=== PATIENT | male | born 1970 | race Caucasian/White ===

== ENCOUNTER → 2018-04-27 09:58 | Outpatient (CLI) | payer OTHER, SELFPAY ==
[2018-04-27 12:07] LABS: Absolute Lymphocyte Count 1.08 X10^3/ul (0.83-4.51); Absolute Neutrophil Count 5.5 X10^3/uL (2.0-7.7); Basophil# 0.02 X10^3/uL; Basophil% 0.3 % (0-1); Eosinophil# 0.15 X10^3/uL; Hematocrit 41.1 % (40-54); Hemoglobin 14.4 g/dl (13.0-16.5); Lymphocyte # 1.08 X10^3/ul (4.0); Lymphocyte % 14.6 % (19-41); Mean Corpuscular Hgb 29.3 pg (27.0-32.0); Mean Corpuscular Volume 83.5 fL (80-94); Mean Platelet Vol. 11.5 fl (6.2-12.0); Monocyte# 0.64 X10^3/uL; Monocyte% 8.6 % (0-10); Neutrophil # 5.49 X10^3/uL (2.7-7.7); Neutrophil % 74.1 % (47-70); Platelet Count 228 K/mm3 (150-450); RBC Distribution Width CV 12.8 % (11.6-14.6); RBC Distribution Width SD 38.2 fl (35.1-43.9); Red Blood Count 4.92 M/mm3 (4.6-6.2); White Blood Count 7.4 K/mm3 (4.4-11.0)
[2018-04-27 12:08] LABS: POSITIVE COUNT NO; POSITIVE DIFFERENTIAL NO; POSITIVE MORPHOLOGY NO
[2018-04-27 12:14] LABS: Anion Gap 8 (5-15); BUN 12 mg/dL (7-18); BUN/Creat Ratio 14.9 RATIO (10-20); Calcium,Total 8.6 mg/dL (8.5-10.1); Chloride 105 mmol/L (98-107); EST Glomerular Filtration Rate 109 mL/min (>60); Est Glom Filt Rate - Afr Amer 132 mL/min (>60); Glucose 170 mg/dL (74-106); Potassium 4.2 mmol/L (3.5-5.1); Sodium Level 139 mmol/L (136-145)
== END ==
PROVIDERS: Family Provider Family Medicine; PCP Family Medicine; Visit Provider Family Medicine
DX: I10 Essential (primary) hypertension (principal); E11.9 Type 2 diabetes mellitus without complications
CPT/HCPCS: 36415; 80048; 85025

== ENCOUNTER → 2019-08-23 | Outpatient (CLI) | payer OTHER, SELFPAY ==
[2019-08-23 17:30] LABS: Absolute Lymphocyte Count 1.85 X10^3/uL (0.83-4.51); Basophil# 0.05 X10^3/uL; Basophil% 0.7 % (0-1); Eosinophil# 0.12 X10^3/uL; Eosinophils% 1.6 % (0-5); Hematocrit 42.6 % (40-54); Hemoglobin 14.8 g/dL (13.0-16.5); Lymphocyte # 1.85 X10^3/ul (4.0); Lymphocyte % 24.2 % (19-41); Mean Corp Hgb Conc 34.7 g/dL (32-36); Mean Corpuscular Hgb 29.4 pg (27.0-32.0); Mean Corpuscular Volume 84.7 fL (80-94); Mean Platelet Vol. 11.2 fl (6.2-12.0); Monocyte# 0.57 X10^3/uL; Monocyte% 7.5 % (0-10); NRBC Flagged by Analyzer 0 % (0-5); Neutrophil % 65.3 % (47-70); Platelet Count 212 K/mm3 (150-450); RBC Distribution Width CV 12.5 % (11.6-14.6); RBC Distribution Width SD 37.7 fl (35.1-43.9); Red Blood Count 5.03 M/mm3 (4.6-6.2); White Blood Count 7.6 K/mm3 (4.4-11.0)
[2019-08-23 18:41] LABS: AST(SGOT) 109 U/L (15-37); Alanine Aminotransfer ALT/SGPT 209 U/L (16-61); Albumin, Serum 3.7 g/dL (3.2-5.0); Alkaline Phosphatase 95 U/L (45-117); Anion Gap 10 (5-15); BUN 16 mg/dL (7-18); BUN/Creat Ratio 15.5 RATIO (10-20); Calcium,Total 9.1 mg/dL (8.5-10.1); Chloride 104 mmol/L (98-107); Creatinine, Serum 1.03 mg/dL (0.70-1.30); EST Glomerular Filtration Rate 82 mL/min (>60); Est Glom Filt Rate - Afr Amer 99 mL/min (>60); Globulin 3.6 g/dL (2.2-4.2); Glucose 162 mg/dL (74-106); Potassium 4.1 mmol/L (3.5-5.1); Protein, Total 7.3 g/dL (6.4-8.2); Sodium Level 141 mmol/L (136-145)
== END | disposition home or self-care (01) ==
LOC: BFHLAB 16:40
PROVIDERS: Family Provider Family Medicine; PCP Family Medicine; Visit Provider Family Medicine
DX: E11.9 Type 2 diabetes mellitus without complications (principal); E78.5 Hyperlipidemia, unspecified; I10 Essential (primary) hypertension
CPT/HCPCS: 36415; 80053; 84443; 85025

== ENCOUNTER → 2019-08-30 13:59 | Outpatient (CLI) | payer OTHER, SELFPAY ==
[2019-08-30 16:26] LABS: AST(SGOT) 146 U/L (15-37); Alanine Aminotransfer ALT/SGPT 300 U/L (16-61); Albumin, Serum 3.8 g/dL (3.2-5.0); Alkaline Phosphatase 91 U/L (45-117); Bilirubin, Direct 0.13 mg/dL (0.00-0.30); Globulin 3.5 g/dL (2.2-4.2); Protein, Total 7.3 g/dL (6.4-8.2)
== END ==
LOC: LAB.FUTURE 14:06 → BFHLAB 09-02 13:42
PROVIDERS: Family Provider Family Medicine; PCP Family Medicine; Visit Provider Family Medicine
DX: R74.0 Nonspecific elevation of levels of transaminase and lactic acid dehydrogenase [LDH] (principal)
CPT/HCPCS: 36415; 80076

== ENCOUNTER → 2019-09-03 13:41 | Outpatient (CLI) | payer OTHER, SELFPAY ==
[2019-09-03 16:08] LABS: ALB/GLOB Ratio 1.2 RATIO (0.9-2.4); AST(SGOT) 93 U/L (15-37); Alanine Aminotransfer ALT/SGPT 211 U/L (16-61); Alkaline Phosphatase 91 U/L (45-117); Anion Gap 8 (5-15); BUN 15 mg/dL (7-18); BUN/Creat Ratio 17.2 RATIO (10-20); Chloride 104 mmol/L (98-107); Creatinine, Serum 0.87 mg/dL (0.70-1.30); EST Glomerular Filtration Rate 99 mL/min (>60); Est Glom Filt Rate - Afr Amer 120 mL/min (>60); Ferritin 445 ng/mL (26-388); Globulin 3.4 g/dL (2.2-4.2); Glucose 191 mg/dL (74-106); Iron 77 ug/dL (65-175); Iron Binding Capacity,Total 334 ug/dL (250-450); Potassium 3.7 mmol/L (3.5-5.1); Protein, Total 7.4 g/dL (6.4-8.2); Sodium Level 138 mmol/L (136-145)
[2019-09-04 11:25] LABS: Hepatitis B Surface Antigen Non-Reactive (Nonreactive); Hepatitis C Antibody Non-Reactive (Nonreactive)
[2019-09-07 13:17] LABS: CMV Acute Antibody IgM < 30.0 AU/mL (0.0-29.9); CMV Antibody IgG < 0.60 U/mL (0.00-0.59); Ceruloplasmin 24.1 mg/dL (16.0-31.0); EBV Acute VCA IgM < 36.0 U/mL (0.0-35.9); EBV Early Antigen IgG 11.4 U/mL (0.0-8.9)
[2019-09-07 13:21] LABS: ANTINUCLEAR ANTIBODIES DIRECT Negative (Negative); HIV-1 RNA by PCR, Quant. < 20 copies/mL (.)
== END ==
PROVIDERS: Family Provider Family Medicine; PCP Family Medicine; Visit Provider Family Medicine
DX: R74.0 Nonspecific elevation of levels of transaminase and lactic acid dehydrogenase [LDH] (principal)
CPT/HCPCS: 36415; 80053; 82390; 82728; 83540; 83550; 86038; 86225; 86235; 86644; 86645; 86663; 86664; 86665; 86703; 86803; 87340; 87536

== ENCOUNTER → 2019-09-12 08:28 | Outpatient (CLI) | payer OTHER, SELFPAY ==
--- NOTE | 2019-09-12 08:41 | US_ITS ---
STUDY: ABDOMINAL ULTRASOUND - RIGHT UPPER QUADRANT REASON FOR VISIT: Male, 48 years old elevated lab tests. TECHNIQUE: Ultrasound evaluation of the right upper quadrant was performed with real-time and static garcia-scale imaging. TECHNICAL QUALITY: Adequate. COMPARISON: None. FINDINGS: Liver: The liver measures 15.8 cm. There is normal echogenicity of the liver. The bile ducts are within normal limits. There is hepatic color flow. The direction of portal flow is hepatopetal. There is no demonstrated mass lesion. Gallbladder: Normal distended gallbladder. The gallbladder wall measures 2.4 mm. There is a negative sonographic Canales''s sign. There is no pericholecystic fluid. There are no gallstones. Common Bile Duct (C.B.D.): The common bile duct measures 2.5 mm. Pancreas: There is nonvisualization of the pancreas. Right Kidney: Normal size of the right kidney. The right kidney measures 11.8 cm. Normal renal cortex. The right cortex measures 2.4 cm. There is no demonstrated renal mass or cyst. There is no right hydronephrosis. US/Liver IMPRESSION: Normal right upper quadrant ultrasound examination. Electronically Signed: Nitish Elizalde MD at 23:13 EST , Service support ,
== END ==
PROVIDERS: Family Provider Family Medicine; PCP Family Medicine; Referring Provider Family Medicine; Visit Provider Family Medicine
DX: R74.0 Nonspecific elevation of levels of transaminase and lactic acid dehydrogenase [LDH] (principal)
CPT/HCPCS: 76705

== ENCOUNTER → 2019-09-20 15:43 | Outpatient (CLI) | payer OTHER, SELFPAY ==
[2019-09-20 17:22] LABS: AST(SGOT) 58 U/L (15-37); Alanine Aminotransfer ALT/SGPT 113 U/L (16-61); Albumin, Serum 4.4 g/dL (3.2-5.0); Alkaline Phosphatase 88 U/L (45-117); Bilirubin, Direct 0.24 mg/dL (0.00-0.30); Globulin 3.4 g/dL (2.2-4.2); Protein, Total 7.8 g/dL (6.4-8.2)
== END ==
PROVIDERS: Family Provider Family Medicine; PCP Family Medicine; Visit Provider Family Medicine
DX: R74.0 Nonspecific elevation of levels of transaminase and lactic acid dehydrogenase [LDH] (principal)
CPT/HCPCS: 36415; 80076

== ENCOUNTER → 2019-10-18 15:24 | Outpatient (CLI) | payer OTHER, SELFPAY ==
[2019-10-18 17:17] LABS: AST(SGOT) 31 U/L (15-37); Alanine Aminotransfer ALT/SGPT 64 U/L (16-61); Albumin, Serum 3.9 g/dL (3.2-5.0); Alkaline Phosphatase 95 U/L (45-117); Bilirubin, Direct 0.16 mg/dL (0.00-0.30); Globulin 3.5 g/dL (2.2-4.2); Protein, Total 7.4 g/dL (6.4-8.2)
[2019-10-18 17:19] LABS: Hemoglobin A1c 8.3 % (4.2-6.3)
== END ==
PROVIDERS: Family Provider Family Medicine; PCP Family Medicine; Visit Provider Family Medicine
DX: R74.0 Nonspecific elevation of levels of transaminase and lactic acid dehydrogenase [LDH] (principal); E11.9 Type 2 diabetes mellitus without complications
CPT/HCPCS: 36415; 80076; 83036

== ENCOUNTER → 2020-05-29 | Outpatient (CLI) | payer OTHER, SELFPAY ==
--- NOTE | 2020-05-29 14:17 | RAD_ITS ---
STUDY: X-RAY CHEST REASON FOR EXAM: Male, 49 years old. hemoptysis TECHNIQUE: Frontal view of the chest COMPARISON: None. FINDINGS: Please note that plain films are not able to evaluate for hemoptysis etiology. Refer to CT of the chest with IV contrast. Lungs are clear. There is no pneumothorax, pulmonary edema or pleural effusions. Cardiac size is normal. RAD/Chest PA and Lateral IMPRESSION: No acute cardio respiratory disease. Refer to CT of the chest with contrast for evaluation of etiology of hemoptysis, which cannot be discovered on plain films. Electronically Signed: Korey Jean, at 19:30 EDT Tel , Service support ,
[2020-05-29 15:21] LABS: Absolute Lymphocyte Count 1.73 X10^3/uL (0.83-4.51); Absolute Neutrophil Count 4.2 X10^3/uL (2.0-7.7); Basophil# 0.03 X10^3/uL; Basophil% 0.5 % (0-1); Eosinophils% 1.5 % (0-5); Hematocrit 43.1 % (40-54); Hemoglobin 14.4 g/dL (13.0-16.5); Lymphocyte # 1.73 X10^3/ul (4.0); Lymphocyte % 26.4 % (19-41); Mean Corp Hgb Conc 33.4 g/dL (32-36); Mean Corpuscular Hgb 28.8 pg (27.0-32.0); Mean Corpuscular Volume 86.2 fL (80-94); Mean Platelet Vol. 11.4 fl (6.2-12.0); Monocyte# 0.51 X10^3/uL; Monocyte% 7.8 % (0-10); NRBC Flagged by Analyzer 0 % (0-5); Neutrophil # 4.15 X10^3/uL (2.7-7.7); Neutrophil % 63.2 % (47-70); Platelet Count 232 K/mm3 (150-450); RBC Distribution Width CV 12.4 % (11.6-14.6); RBC Distribution Width SD 38.7 fl (35.1-43.9); White Blood Count 6.6 K/mm3 (4.4-11.0)
[2020-05-29 15:40] LABS: ALB/GLOB Ratio 1.1 RATIO (0.9-2.4); AST(SGOT) 37 U/L (15-37); Alanine Aminotransfer ALT/SGPT 58 U/L (16-61); Albumin, Serum 3.8 g/dL (3.2-5.0); Alkaline Phosphatase 89 U/L (45-117); Anion Gap 4 (5-15); BUN 11 mg/dL (7-18); BUN/Creat Ratio 13.6 RATIO (10-20); Calcium,Total 8.9 mg/dL (8.5-10.1); Chloride 107 mmol/L (98-107); Creatinine, Serum 0.81 mg/dL (0.70-1.30); EST Glomerular Filtration Rate 108 mL/min (>60); Est Glom Filt Rate - Afr Amer 130 mL/min (>60); Globulin 3.5 g/dL (2.2-4.2); Glucose 175 mg/dL (74-106); Potassium 4.3 mmol/L (3.5-5.1); Protein, Total 7.3 g/dL (6.4-8.2); Sodium Level 138 mmol/L (136-145)
== END | disposition home or self-care (01) ==
PROVIDERS: PCP Family Medicine; Referring Provider Family Medicine; Visit Provider Family Medicine
DX: I10 Essential (primary) hypertension (principal); R04.2 Hemoptysis; R74.0 Nonspecific elevation of levels of transaminase and lactic acid dehydrogenase [LDH]; R10.9 Unspecified abdominal pain; R06.2 Wheezing
CPT/HCPCS: 36415; 71046; 80053; 85025

== ENCOUNTER 2020-08-14 15:23 | Emergency (ER) | payer OTHER, SELFPAY ==
[2020-08-14 15:24] VITALS: BP 156/104; PULSE 84; RESP 17; TEMP 36.6; O2SAT 96; BMI 38.9
[2020-08-14 15:51] LABS: Bacteria 0 SEEN /hpf (None Seen); Mucous, Urine 0 SEEN /hpf (<or=2+); Red Blood Cells-Urine 0 SEEN /hpf (0-5); White Blood Cells 0 SEEN /hpf (0-5)
[2020-08-14 16:09] LABS: Color, Urine Yellow (Yellow); Glucose, Dipstick 1000 mg/dl (Normal); Ketone-Dipstick 5 mg/dl (Negative); Leukocyte Esterase-Dipstick Negative /ul (Negative); Nitrite-Dipstick Negative (Negative); Occult Blood-Urine Negative /ul (Negative); Protein-Dipstick Negative (Negative); Urine Bilirubin Dipstick Negative (Negative); Urine Clarity Clear (Clear); Urine Urobilinogen Normal (Normal)
[2020-08-14 16:19] LABS: Squamous Epithelial Cells - UA 0-5 SEEN /hpf (0-5)
--- NOTE | 2020-08-14 16:21 | ED.VIS.GEN ---
History of Present Illness Chief Complaint: Flank Pain Informant: Patient Narrative: 49 yo M with past medical history of diabetes and hypertension presents with concern for right back pain. States is been intermittent over the past few weeks. States it is worsened over the past 2 days with increased urinary frequency. Denies any fever, chills, hematuria. Denies any nausea or vomiting. Denies any history of kidney stones. Denies any trauma. Past Medical History - Allergies and Home Meds Allergies/Adverse Reactions: Allergies No Known Allergies Allergy (Verified 08/14/20 15:24) Primary Care Physician: Johann Holden MD [Primary Care Provider] - Prior records reviewed: Yes Past Medical History: - - Dm and HTN Surgical History: - - Tonsils and left knee Lives: With Family Smoking Status: Unknown if ever smoked Alcohol: Occasional Drugs: None Review of Systems General: Denies: Chills, Fever, Sweats Eyes: Denies: Visual changes - bilaterally, Diplopia ENT: Denies: Rhinorrhea, Sore throat Cardiovascular: Denies: Chest pain, Palpitations Respiratory: Denies: Dyspnea, Cough, Dyspnea on exertion Gastrointestinal: Denies: Abdominal pain, Nausea, Vomiting, Diarrhea, Melena, Hematochezia Genitourinary: Reports: Frequency. Denies: Dysuria, Hematuria Musculoskeletal: Reports: Back pain. Denies: Extremity Pain Skin: Denies: Rash, Wounds Neurological: Denies: Headache, Weakness, Numbness Physical Exam Vital Signs/Narrative: Vital Signs Temp Pulse Resp BP Pulse Ox 08/14/20 15:24 97.8 F 84 17 156/104 H 96 Inital Vital Signs reviewed: Yes General: Well nourished, Well developed, No Acute Distress Head: Normocephalic, Atraumatic Eyes: Perrl, EOMI ENT: Moist mucous membranes, No rhinorrhea Neck: Supple, Nontender Cardiovascular: Regular rate, Regular rhythm, No murmurs Respiratory: No distress, CTA bilaterally, Chest nontender Abdomen: Soft, Nontender, Nondistended, Normal bowel sounds Back: Normal Inspection, - - Mild TTP to the right paralumbar musculature Extremities: Nontender, No edema Skin: Normal color, No rash Neurological: Alert, Oriented x3, Cranial nerves II-XII grossly intact, Normal Strength, Normal Sensation Psychological: Normal affect, Normal Mood Diagnostic/Tx/Re-eval Clinical Impression(s) from Imaging Studies Abdomen/Pelvis CT 08/14/20 18:16 IMPRESSION: 1. Hepatic steatosis without mass. 2. No evidence of acute intra-abdominal or pelvic abnormality. Electronically Signed: Doyle Marquez DO at 19:37 EST Tel [phone], Service support , Laboratory Data 08/14/20 08/14/20 08/14/20 15:35 16:40 16:40 WBC 7.4 RBC 5.23 Hgb 15.0 Hct 43.1 MCV 82.4 MCH 28.7 MCHC 34.8 RDW Std Deviation 36.3 RDW Coeff of Jaziel 12.2 Plt Count 207 MPV 11.1 Immature Gran % (Auto) 0.500 Neut % (Auto) 66.1 Lymph % (Auto) 24.3 Marshall % (Auto) 7.4 Eos % (Auto) 1.3 Baso % (Auto) 0.4 Absolute Neuts (auto) 4.9 Absolute Lymphs (auto) 1.80 Nucleated RBC % 0 Sodium 137 Potassium 4.2 Chloride 103 Carbon Dioxide 29.0 Anion Gap 5 BUN 14 Creatinine 0.99 Estim Creat Clear Calc 96.13 Est GFR (MDRD) Af Amer 103 Est GFR (MDRD) Non-Af 85 BUN/Creatinine Ratio 14.1 Glucose 346 H Calcium 9.4 Total Bilirubin 0.50 AST 27 ALT 68 H Alkaline Phosphatase 111 Total Protein 7.6 Albumin 3.9 Globulin 3.7 Albumin/Globulin Ratio 1.1 Urine Color Yellow Urine Clarity Clear Urine pH 5.0 Ur Specific Newborn 1.020 Urine Protein Negative Urine Glucose (UA) 1000 H Urine Ketones 5 H Urine Occult Blood Negative Urine Nitrite Negative Urine Bilirubin Negative Urine Urobilinogen Normal Ur Leukocyte Esterase Negative Urine RBC 0 SEEN Urine WBC 0 SEEN Ur Squamous Epith Cells 0-5 SEEN Urine Bacteria 0 SEEN Urine Mucus 0 SEEN - Medical Decision Making Appears well nontoxic. Focal tenderness over the right paraspinal musculature. With the patient's increase in urinary frequency urine analysis was done which shows no acute process. Patient does have an elevated glucose and was given 1 L of normal saline. CT of the abdomen pelvis shows fatty liver but no other process. Patient will be given Naprosyn for home. Advised on better control of his glucose. Discharged home in stable condition. ED Disposition - Plan for ED Patient: Disposition: Home or Assisted Living Instructions: Relieving Back Pain, Non-Alcoholic Fatty Liver Disease (NAFLD) Prescriptions: Naproxen [Naprosyn] 500 mg PO BID #14 tab Prescription Printed Referrals: Johann Holden MD [Primary Care Provider] - 2 Days
[2020-08-14] MEDS: 0.9% Normal Saline 1,000 ML 1000 ML IV (16:48)
[2020-08-14] MEDS: Ketorolac 15 MG/ML Vial IV (16:48)
[2020-08-14 16:56] LABS: Absolute Neutrophil Count 4.9 X10^3/uL (2.0-7.7); Basophil# 0.03 X10^3/uL; Basophil% 0.4 % (0-1); Eosinophils% 1.3 % (0-5); Hematocrit 43.1 % (40-54); Lymphocyte % 24.3 % (19-41); Mean Corp Hgb Conc 34.8 g/dL (32-36); Mean Corpuscular Hgb 28.7 pg (27.0-32.0); Mean Corpuscular Volume 82.4 fL (80-94); Mean Platelet Vol. 11.1 fl (6.2-12.0); Monocyte# 0.55 X10^3/uL; Monocyte% 7.4 % (0-10); NRBC Flagged by Analyzer 0 % (0-5); Neutrophil % 66.1 % (47-70); Platelet Count 207 K/mm3 (150-450); RBC Distribution Width CV 12.2 % (11.6-14.6); RBC Distribution Width SD 36.3 fl (35.1-43.9); Red Blood Count 5.23 M/mm3 (4.6-6.2); White Blood Count 7.4 K/mm3 (4.4-11.0)
[2020-08-14 17:56] VITALS: BP 170/82; O2SAT 96
[2020-08-14 18:03] LABS: ALB/GLOB Ratio 1.1 RATIO (0.9-2.4); AST(SGOT) 27 U/L (15-37); Alanine Aminotransfer ALT/SGPT 68 U/L (16-61); Albumin, Serum 3.9 g/dL (3.2-5.0); Alkaline Phosphatase 111 U/L (45-117); Anion Gap 5 (5-15); BUN 14 mg/dL (7-18); BUN/Creat Ratio 14.1 RATIO (10-20); Calcium,Total 9.4 mg/dL (8.5-10.1); Chloride 103 mmol/L (98-107); Creatinine, Serum 0.99 mg/dL (0.70-1.30); EST Glomerular Filtration Rate 85 mL/min (>60); Est Glom Filt Rate - Afr Amer 103 mL/min (>60); Estimated Creatinine Clearance 96.13 ml/min; Globulin 3.7 g/dL (2.2-4.2); Glucose 346 mg/dL (74-106); Potassium 4.2 mmol/L (3.5-5.1); Protein, Total 7.6 g/dL (6.4-8.2); Sodium Level 137 mmol/L (136-145)
--- NOTE | 2020-08-14 18:16 | CT_ITS ---
STUDY: CT ABDOMEN AND PELVIS WITH CONTRAST REASON FOR EXAM: Male, 49 years old. Right flank pain for 2 months. History of hypertension and diabetes. RADIATION DOSAGE (If Supplied By Facility): CTDIvol = ( 22.06 ) mGy, DLP = ( 1374.97 ) mGycm TECHNIQUE: Transaxial images were obtained from the dome of the diaphragm to the symphysis pubis without oral contrast. IV 100mL Isovue-370 was administered. Sagittal and coronal images were reconstructed. Individualized dose optimization techniques were used for this CT. COMPARISON: Right upper quadrant abdominal ultrasound, 09/12/2019. FINDINGS: The visualized lung bases are unremarkable. The visualized portions of the heart are within normal limits. Fatty infiltration of the liver without focal mass. Normal gallbladder and extrahepatic biliary system. 1 Normal pancreas. Normal bilateral adrenal glands. Normal right kidney. Normal left kidney. Normal visualized ureters. Normal visualized stomach. Normal small intestine. Normal colon. The appendix is visualized and appears normal. There is diffuse atherosclerotic calcification of the abdominal aorta, without a demonstrated aneurysm. Normal inferior vena cava. Normal retroperitoneum. Normal urinary bladder. Normal prostate. There is no pelvic lymphadenopathy. No free air or free fluid is seen within the peritoneal cavity. Normal abdominal wall. There are diffuse degenerative changes of the visualized lumbar spine. CT/Abdomen/Pelvis W IV Cont ONLY IMPRESSION: 1. Hepatic steatosis without mass. 2. No evidence of acute intra-abdominal or pelvic abnormality. Electronically Signed: Doyle Marquez DO at 19:37 EST Tel [phone], Service support ,
[2020-08-14] MEDS: 0.9% Normal Saline 1,000 ML 999 ML IV (19:10)
[2020-08-14 19:12] VITALS: BP 103/69; PULSE 80; RESP 15; O2SAT 100
[2020-08-14 20:02] VITALS: BP 122/84; PULSE 69; RESP 15; O2SAT 98
== END 2020-08-14 20:03 | disposition home or self-care (01) ==
PROVIDERS: Emergency Provider Emergency Medicine; PCP Family Medicine
DX: M54.5 Low back pain (principal); R30.0 Dysuria; E11.65 Type 2 diabetes mellitus with hyperglycemia; K76.0 Fatty (change of) liver, not elsewhere classified; I10 Essential (primary) hypertension; Z79.84 Long term (current) use of oral hypoglycemic drugs; Z79.899 Other long term (current) drug therapy
CPT/HCPCS: 74177; 80053; 81001; 85025; 96361; 96374; 99284; J7030; Q9967

== ENCOUNTER 2021-09-13 09:25 | Emergency (ER) | payer OTHER, SELFPAY ==
[2021-09-13 09:26] VITALS: BP 211/125; PULSE 91; RESP 18; TEMP 36.2; O2SAT 97; BMI 38.5
--- NOTE | 2021-09-13 10:20 | EDS_ITS ---
HPI History of Present Illness Chief Complaint: Back Narrative Narrative: Patient presenting with right gluteal pain. He states he has been trying to deal with this with prednisone from his doctor. Is not helping. He denies any acute trauma. He has a history of this in the past and similar to previous sciatica episodes. He does not have any back pain. He denies loss of bladder control or saddle paresthesias. He is ambulatory. [facility] Medical History Diabetes HTN (hypertension) Home Medications Glimepiride 4 mg PO DAILY 08/14/20 [History Last Taken Unknown] albuterol sulfate 08/14/20 [History Last Taken Unknown] lisinopril 40 mg PO DAILY 08/14/20 [History Last Taken Unknown] metformin 500 mg PO DAILY 08/14/20 [History Last Taken Unknown] naproxen 500 mg PO BID #14 tab 08/14/20 [Rx Last Taken Unknown] oxycodone-acetaminophen [Endocet] 1 tab PO Q6H PRN 3 Days #12 tab 09/13/21 [Rx Last Taken Unknown] Allergy/AdvReac Type Severity Reaction Status Date / Time No Known Allergies Allergy Verified 09/13/21 09:25 Social History Smoking Status: Never smoker ROS ROS ED Constitutional Constitutional ED: Denies chills or fever(s) Eyes Eyes: Denies blurry vision or change in vision ENT ENT ED: Denies rhinorrhea Cardiovascular Cardiovascular: Denies chest pain or palpitations Respiratory/Chest Respiratory/Chest: Denies dyspnea Gastrointestinal Gastrointestinal: Denies abdominal pain Genitourinary Genitourinary ED: Denies dysuria or hematuria Musculoskeletal Musculoskeletal: Reports other Details: Right gluteal pain ; Denies back pain Integumentary Denies abscess or rash Neurologic Neurologic: Denies headache(s) or paresthesias EXAM Physical Exam Const Vital Signs: 09/13/21 09:26 Temperature 97.2 F L Temperature Source Temporal Pulse Rate 91 Respiratory Rate 18 Blood Pressure 211/125 H Blood Pressure Mean 153 Pulse Ox 97 Oxygen Delivery Method Room Air Positive well nourished General Appearance ED: NAD; Negative for pallor HEENT Reports moist mucous membranes Negative for trauma Eyes PERRL and EOMs intact bilaterally Resp normal respiratory effort and clear to auscultation bilaterally Cardio regular rate and regular rhythm GI normal to inspection, nondistended, normoactive bowel sounds Back/Spine normal to inspection Extremity Extremity Narrative: Tenderness palpation right gluteal region. Patient's pain reproduced by lifting the leg in the supine position to 25 degrees. Neuro oriented x3 Sensorium / Orientation: alert Psych mental status grossly normal Skin General Skin Exam: Negative for jaundice or pallor MDM MDM MDM Narrative Medical decision making narrative: Patient is given oxycodone in the ED. I do not not think he would benefit from any imaging. Patient was counseled to follow-up with his PCP and recommended physical therapy for him. If he has any new or worsening symptoms he should return to the ED. Impression: 1. Sciatica Discharge Plan Triage Chief Complaint: Back ED Provider: Genaro Vang Dx/Rx/DC Orders Instructions: ED Sciatica Prescriptions: New oxycodone-acetaminophen [Endocet] 5-325 mg tablet 1 tab PO Q6H PRN (Reason: pain) 3 Days Qty: 12 RF: 0 No Action albuterol sulfate 8.5 GM HFA aerosol inhaler RF: 0 lisinopril 40 MG tablet 40 mg PO DAILY RF: 0 metformin 500 MG tablet extended release 24hr 500 mg PO DAILY RF: 0 Glimepiride 4 MG 4 mg PO DAILY RF: 0 naproxen 500 MG tablet 500 mg PO BID Qty: 14 RF: 0 Primary Care Provider: Johann Holden Referrals: Johann Holden MD [Primary Care Provider] - Disposition Disposition: Home, Self Care Discharge Date/Time: 09/13/21 11:18
[2021-09-13] MEDS: oxyCODONE 5 MG Tablet PO (10:23)
== END 2021-09-13 11:18 | disposition home or self-care (01) ==
LOC: ED 10:29
PROVIDERS: Emergency Provider Student in an Organized Health Care Education/Training Program; PCP Family Medicine
DX: M54.31 Sciatica, right side (principal); E11.9 Type 2 diabetes mellitus without complications; I10 Essential (primary) hypertension; Z79.84 Long term (current) use of oral hypoglycemic drugs; Z79.899 Other long term (current) drug therapy
CPT/HCPCS: 99283

== ENCOUNTER 2021-10-13 06:22 | Outpatient (CLI) | payer OTHER, SELFPAY ==
--- NOTE | 2021-10-13 06:23 | MRI_ITS ---
History: low back pain into R leg Technique: T1 and T2 MR imaging of the lumbar spine performed without contrast enhancement in axial and sagittal planes. Findings: Alignment of the lumbar vertebral bodies is normal. Vertebral body height is normal. No bone marrow edema. The conus medullaris and cauda equina are normal. Paraspinal soft tissues are normal. L1-2: No disc protrusion. Normal caliber spinal canal and neural foramina. L2-3: Left posterolateral disc protrusion causes mild narrowing of the left lateral recess. No significant spinal or neuroforaminal stenosis. L3-4: No disc herniation. Right-sided disc osteophyte complex and facet arthropathy results in moderate narrowing of the right neural foramen. L4-5: Posterolateral disc osteophyte complex and facet arthropathy results in prominent neural foraminal narrowing on the right and mild neural foraminal narrowing on the left. L5-S1: Central disc protrusion noted without significant impingement on the thecal sac. Mild narrowing of the neural foramina related to facet arthropathy and mild vertebral body hypertrophy. IMPRESSION: No evidence of spinal stenosis. Neural foraminal narrowing related to disc osteophyte prominence and facet arthropathy. at 1630 Reported and signed by: Umair Zhou MD Electronically Signed: Umair Zhou MD at 16:29 EST Tel , Service support , MRI/Spine Lumbar (Routine)
== END 2021-10-13 23:59 | disposition short-term general hospital (02) ==
PROVIDERS: PCP Family Medicine; Referring Provider Orthopaedic Surgery; Visit Provider Orthopaedic Surgery
DX: M54.16 Radiculopathy, lumbar region (principal)
CPT/HCPCS: 72148

== ENCOUNTER 2022-03-08 07:25 | Observation (INO) | payer OTHER, SELFPAY ==
--- NOTE | 2022-02-24 08:31 | EKG12_ITS ---
Test Reason : PREOP Blood Pressure : / mmHG Vent. Rate : 072 BPM Atrial Rate : 072 BPM P-R Int : 158 ms QRS Dur : 108 ms QT Int : 408 ms P-R-T Axes : 043 041 125 degrees QTc Int : 446 ms Normal sinus rhythm with sinus arrhythmia Nonspecific T wave abnormality Abnormal ECG Confirmed by DANETTE HOLLOWAY, ADELFO ([id number]), editor news YAEL MCNEIL ([id number]) on 02/25/2022 10:34:34 A M Referred By: Honorio Conrad Confirmed By:JESSICA SAMANIEGO MD
[2022-02-24 08:57] LABS: Absolute Lymphocyte Count 1.57 X10^3/uL (0.83-4.51); Absolute Neutrophil Count 4.4 X10^3/uL (2.0-7.7); Basophil# 0.03 X10^3/uL; Basophil% 0.5 % (0-1); Eosinophil# 0.12 X10^3/uL; Eosinophils% 1.8 % (0-5); Hematocrit 39.2 % (40-54); Hemoglobin 13.9 g/dL (13.0-16.5); Lymphocyte # 1.57 X10^3/ul (0.83-4.51); Lymphocyte % 23.8 % (19-41); Mean Corp Hgb Conc 35.5 g/dL (32-36); Mean Corpuscular Hgb 29.6 pg (27.0-32.0); Mean Corpuscular Volume 83.4 fL (80-94); Mean Platelet Vol. 10.8 fl (6.2-12.0); Monocyte# 0.41 X10^3/uL; Monocyte% 6.2 % (0-10); NRBC Flagged by Analyzer 0 % (0-5); Neutrophil # 4.43 X10^3/uL (2.7-7.7); Neutrophil % 66.9 % (47-70); Platelet Count 203 K/mm3 (150-450); RBC Distribution Width CV 12.7 % (11.6-14.6); White Blood Count 6.6 K/mm3 (4.4-11.0)
[2022-02-24 09:27] LABS: Anion Gap 8 (5-15); BUN 13 mg/dL (7-18); BUN/Creat Ratio 16.3 RATIO (10-20); Calcium,Total 8.6 mg/dL (8.5-10.1); Chloride 105 mmol/L (98-107); EST Glomerular Filtration Rate 109 mL/min (>60); Est Glom Filt Rate - Afr Amer 131 mL/min (>60); Glucose 259 mg/dL (74-106); Potassium 3.6 mmol/L (3.5-5.1); Sodium Level 139 mmol/L (136-145)
[2022-02-24 09:28] LABS: Magnesium 1.7 mg/dL (1.6-2.6)
[2022-02-24 10:05] LABS: HIV - WCH Non-Reactive (Nonreactive); Hepatitis B Surface Antibody Non-Reactive; Hepatitis C Antibody Non-Reactive (Nonreactive)
[2022-02-24 11:05] LABS: Hemoglobin A1c 7.3 % (3.8-5.6)
[2022-02-25 11:46] LABS: Hepatitis A AB, Total Negative (Negative)
[2022-03-08] VITALS (14 sets, daily range): BP systolic 120–192; BP diastolic 70–99; PULSE 65–87; RESP 16–20; TEMP 36.3–37.2; O2SAT 95–100; BMI 38.0
[2022-03-08] MEDS: Acetaminophen 500 MG Tablet 1000 MG PO ×3 (06:47→22:24)
[2022-03-08] MEDS: Magnesium Sulfate 2 GM IV IV (07:00)
[2022-03-08] MEDS: Lactated Ringers 1,000 ML 15 ML IV ×2 (07:05→09:01)
--- NOTE | 2022-03-08 07:07 | HP.PCM_ITS ---
History and Physical Date of Admission: 03/08/22 [facility] [id number] MR:[id number] Provider:Dr. Honorio Conrad DOAge/Sex: 50/M [place] on:Guero:Signed Intake Vital Signs 09:38 Height 5 ft 11 in Weight: 268 lb BMI 37.3 Intake Visit Reasons: LUMBER SPINE Chief Complaint: low back pain Accompanied by: Is patient in pain?: Yes Pain scale (1-10): 8 Allergies No Known Allergies Allergy (Verified 09/13/21 09:25) Medications Glimepiride 4 mg PO DAILY 08/14/20 [History Confirmed 09/29/21] albuterol sulfate 08/14/20 [History Confirmed 09/29/21] lisinopril 40 mg PO DAILY 08/14/20 [History Confirmed 09/29/21] metformin 500 mg PO DAILY 08/14/20 [History Confirmed 09/29/21] ibuprofen 200 mg tablet 800 mg PO Q6H PRN tab 09/29/21 [History Confirmed 09/29/21] PFSH Medical History (Updat Diabetes HTN (hypertension) Surgical History Hx of arthroscopic knee surgery Hx of tonsillectomy Social History Smoking Status: Never smoker HPI LUMBER SPINE Details: Parts of this documentation were recorded by a scribe, this documentation accurately reflects the service provided and the decisions made by me, Dr. Honorio Conrad DO 09/29/21 0923. NATALIIA CLEMENTE is a 50 year old M NEW patient here today for lower right sided back pain. He states he has been having this pain for about 1 month now. He states that he was lifting something of the ground that weighed 75lbs and he felt a pull/pinch in his back and instant pain. He has lower right sided back pain and pain down his right thigh which stops at the knee. He does have some numbness and tingling of the right thigh at times. He also has had 2 falls since the lifting injury and feels like his right leg is weak which is causing the falls. He has seen is PCP who gave the patient a medrol dose pack which was not effective. He has been seeing Dr. Templeton the chiropractor in [facility] and he feels good the same day of the adjustment but then the next day he has extreme pain agian. He has been using topical creams for the pain which is not effective. He has tried icy hot, heat pack and CBD cream which has not been effective. He has been trying the conservative care at home for the last month without relief. Nataliia is a 50-year-old gentleman that has chief complaint of right-sided low back pain that radiates around the hip into the anterior right thigh. This started as this as above about a month or so ago after lifting a 75 or 80 pound diesel part. Has had the pain ever since. Even steroids given by his physician did not help him. He denies any bowel or bladder dysfunction. He denies history of unexplained weight loss night fever sweats or chills. On examination he has more pain with extension and flexion. However it does not go into the right thigh. He does have a decreased patellar reflex on the right as compared to the left. But he otherwise has seemingly good motor strength of the quads and all the rest of the major muscle groups of both lower extremities. He can stand on his toes and he can stand on his heels without difficulty. He has no long tract signs. Clonus is absent and Babinski's are downgoing. Plain x-rays taken in the office demonstrate a relatively normal AP lateral view of the lumbar spine in a 50-year-old. Impression: Herniated disc L3-4 on the right or far lateral herniation L4-5 on the right. We are ordering an MRI scan of the lumbar spine. He has a neurological deficit. When the pain is bad it is a 10/10 physical therapy at this point will not help him but rather make him worse. So we will bypass that idea as it will not help him. I will see him after the MRI scan and make further recommendations. Coding Level of Care Code Off vis,new,level 3 Diagnoses Lumbosacral radiculopathy at L4 M54.17 Time Spent (min) 30
[2022-03-08 07:11] LABS: Bedside Glucose 178 mg/dL (74-106)
[2022-03-08] MEDS: Cefazolin 2 GM in 0.9% Normal Saline 100 ML IV (07:45)
[2022-03-08] MEDS: THROMBIN (RECOMBINANT) 20,000 UNIT VIAL 20000 UNIT TOPICAL ×2 (08:28→09:33)
--- NOTE | 2022-03-08 08:35 | RAD_ITS ---
STUDY: X-RAY - LUMBAR SPINE REASON FOR EXAM: Male, 51 years old. LAMINECTOMY L3-4,RIGHT TECHNIQUE: Single lateral view(s) of the lumbar spine was obtained. COMPARISON: None FINDINGS: The localization instrument is seen posterior to the L3-L4 disc space level. RAD/Spine 1 View Any Level IMPRESSION: The localization instrument is seen posterior to the L3-L4 disc space level. Electronically Signed: Fermin Golden MD at 10:23 EDT ,
[2022-03-08] MEDS: Lactated Ringers 1,000 ML 100 ML IV ×2 (11:00→16:14)
--- NOTE | 2022-03-08 11:02 | OP.PCM_ITS ---
Report of Operation Date of Procedure: 03/08/22 Description of Surgical Findings:: Preoperative diagnosis: Herniated disc L3-4 with right L4 radiculopathy Postoperative diagnosis: The same Procedure: Lumbar laminectomy L3-4 on the right CPT code 78491 Surgeon: Dr. Conrad assistant director: Georgette ANDRADE Second President [employer]: Barbara Thomas NP Anesthesia: General endotracheal administered by [facility] Estimated blood loss: 150 cc Drains: Medium Hemovac Complications: Excessive epidural bleeding and failure to find free fragment of disc. Procedure: Patient was taken to the OR where he was placed under general endotracheal anesthesia. Rosen catheter was inserted. Neuro monitoring placed their leads on the patient. He was then rolled over onto the prone position on the Jose Angel frame. After appropriate positioning with care to protect his bony prominences his ulnar nerves of both elbows the brachial plexus bilaterally and the genitalia the back was prepped and draped in standard fashion. We then made a longitudinal incision so centered over L3-4. Subcutaneous tissues were incised length of skin incision. I opened the lumbar fascia to the right of the spinous processes and elevated the paravertebral muscles off the lamina of L3 and L4. An intraoperative x-ray was taken with a marker in place to confirm that we were indeed at the L3-4 level. This some further dissection put a Salena retractor in place. We then thinned out the large thick lamina on the right side. Using a angled curette I was able to release the ligamentum flavum off the underside and then started light laminectomy. Note that the laminotomy had to go up quite far up since the disc was above the disc space. Then remove the ligamentum flavum in retrograde fashion with 45 degree Kerrison rongeurs and note that is soon as we did we began having epidural bleeding that was fairly significant. The entire case I had to fight the epidural bleeding more than anything. I slowly packed it with both Gelfoam and cottonoids repeatedly I did identify the disc space itself. The disc should be just above it and try some light I looked and looked for it but I could not find that. It is possible that one of my instruments pushed it further into the midline or probably possibly even out the foramen. The bad epidural bleeding of course was a severe hindrance as this prevented good visualization of the entire case. However the entire lateral recess was open and the ligamentum flavum was gone which also further opened the canal. We are hoping that this took enough pressure off of the L4 nerve root that his thigh pain is gone. The actual extruded fragment however I was never actually found. Though I did check with both the nerve probe and hockey-stick probes and the disc was not felt but there was also no pressure on either of the L4 or the L L3 nerve. That was good news we had packed it so long with thrombin-soaked Gelfoam and cottonoids that when we took them out slowly 1 at a time the bleeding was under fairly good control however any attempt to look further under the dura cause more bleeding so we thought that perhaps with the lateral recess being as open as it was that he would do well. Membrane was placed over the dura to prevent adhesions and Gelfoam was placed over the top of that. A medium Hemovac drain was inserted. We then closed the lumbar fascia using [id number] suture with #1 Vicryl. Followed by closure of subcutaneous tissues with 2-0 Vicryl in layers in interrupted fashion and skin was approximated using skin clips. Sterile dressings were then applied. The patient was recovered in the OR moved to his hospital bed and taken to recovery in satisfactory condition. The end of operative summary on Niko Herbert. This is Dr. Conrad dictating.
[2022-03-08 12:55] LABS: Bedside Glucose 253 mg/dL (74-106)
[2022-03-08] MEDS: Insulin Lispro 100 UNIT/ML INSULN.PEN SC ×3 (13:26→21:53)
--- NOTE | 2022-03-08 15:16 | CON.PCM.HO_ITS ---
Assessment & Plan Assessment/Plan (1) Lumbosacral radiculopathy at L4: PLAN: 1 herniated disc L3-4 with right L4 radiculopathy: Patient had lumbar laminectomy L3-4 on the right on 03/08/2022. Surgery under general anest hesia. On operative note, it is mentioned excessive epidural bleeding and failure to find free fragment of disc mentioned as complication. Drain contains sanguinous collection. Incentive spirometry encouraged. Early ambulation. PT and OT. Patient is high risk for bleeding for perioperative pharmacological VTE prophylaxis. Perioperative surgical management as per Dr. Conrad. Bilateral SCDs. Continue IV fluid. H&H ordered. 2. Hypertension: Blood pressure is uncontrolled in the morning. Is better. Home medications resumed. 3. Diabetes mellitus type 2, uncontrolled hyperglycemia: Glucose in the BMP to 59. Accu-Chek 253. Accu-Chek before meals and at bedtime and cover with Humal og sliding scale. Hold metformin for 2 days. Patient on glimepiride continue. A1c 7.3% on 02/24. 4. Mild allergy with pollens/asthma: Patient did not has to use recent rescue albuterol inhaler or wheezing or fever. Albuterol inhaler as needed. 5. Morbid obesity: Weight loss counseling done. Total time of the visit including total time spent in counseling or coordination of care, (more than 50% of the total time, spent in obtaining medical information from nurses and other ancillary care providers,explaining to the patient about labs, imaging, diagnosis and management), discussion with clinical documentation consultant, talking with patient's present in the room review of labs and imaging is 45 minutes. HPI Consult Data Date of Consult: 03/08/22 HPI Narrative Reason for Consultation: Perioperative L3-4 laminectomy on right HPI Narrative: NATALIIA CLEMENTE, is a 51 M has chronic right-sided back pain with radiation to right thigh up to the knee level for about a month. The pain is started after lifting a 75 pound weight. He also has numbness and tingling of right thigh. Patient failed conservative management therefore admitted electively after surgery. Patient found to have bulging disc L3-4 with right L4 radiculopathy. Patient had lumbar laminectomy L3-4 on the right side. Patient was done under general anesthesia. On operative note, mention excessive epidural bleeding and failure to Phenflu fragment of discussed complication. Patient has drain. Patient had preoperative EKG reported normal sinus rhythm with sinus arrhythmia at 72 bpm. QTc 446 ms. Patient denies any prior history of chest pain angina, non-STEMI or NV. History of hypertension and diabetes mellitus on medications. Patient blood pressure was high 192/99, 169/86. Most recent it is 135/72. Heart rate 79/min. No tachypnea. Pulse ox 95% on 2 L of oxygen Patient denies chest pain or shortness of breath. No echo or stress test for medical chart. [facility] Medical History Alcohol use Anxiety Arthritis Asthma Back pain Blackout Diabetes Dietary restriction Fatty liver History of edema History of pain when walking History of steroid therapy HTN (hypertension) Injury of back Leg cramps Migraine headache Non-smoker Pain Home Medications Glimepiride 4 mg PO DAILY 08/14/20 [History Last Taken Unknown] albuterol sulfate 1 puff INHALATION PRN PRN 08/14/20 [History Last Taken Unknow n] lisinopril 40 mg PO DAILY 08/14/20 [History Last Taken 03/08/22 03:30] metformin 1,000 mg PO BID 08/14/20 [History Last Taken Unknown] ibuprofen 200 mg tablet 800 mg PO Q6H PRN tab 09/29/21 [History Last Taken Unknown] oxycodone-acetaminophen 1 tab PO Q6H PRN 02/23/22 [History Last Taken Unknown] Allergy/AdvReac Type Severity Reaction Status Date / Time No Known Allergies Allergy Verified 03/08/22 06:38 Surgical History History of bursectomy Hx of LASIK Hx of tonsillectomy Social History Smoking Status: Never smoker ROS ROS Narrative Constitutional: Mild groggy, lethargy. Postanesthetic effect. No nausea or vomiting. HEENT: Reports systems reviewed and no addt'l complaints, except as documented Respiratory/Chest: Denies chest pain, shortness of breath at rest or with exertion Gastrointestinal: Denies coffee ground emesis, hematemesis or vomiting Genitourinary: Denies burning urination or new urinary tract symptoms Musculoskeletal: Mild sore in the back after surgery. Chronic back pain with history of right thigh sciatica pain. Patient states his right thigh radiation pain is resolved. Neurologic: Denies seizure-like activity skin:Dressing on the back. Dry. Drain present. Endocrinology: Hyperglycemia, DM type II uncontrolled. Reports systems reviewed and no addt'l complaints, except as documented Hematologic/Lymphatic: Reports systems reviewed and no addt'l complaints, except as documented Rest 14 ROS are negative except as mentioned in HPI Physical Exam Narrative General: Alert, Oriented x3, Cooperative, morbid obesity BMI 38.0 kg/m?. HEENT: Atraumatic, PERRLA, EOMI, Normocephalic Oral: No Gingival or Mucosal Lesions/ Ulcerations Neck: Supple, No JVD, Negative Carotid Bruits Lungs: Air entry diminished in bilateral lung bases. No crepitation/rhonchi Cardiovascular: Regular rate, Regular Rhythm, Normal S1, Normal S2, systolic murmur grade 2/6 over LLSB, right second ICS Abdomen: Bowel Sounds Present, Soft, Non Tender, Non-Distended : Rosen catheter draining clear urine. No renal angle tenderness. No suprapubic tenderness. Extremities: No edema, Capillary Refill Less than 3 Seconds Skin: No rashes, No breakdown Musculoskeletal/spine: Surgical dressing on the back lumbar region dry. Surgical drain sanguinous collection. patient can move all extremities. Muscle strength not checked because of immediate postop period. Mild tenderness on left upper extremity primarily positional. Neurological: Cranial nerves II-XII grossly intact, DTR 2+/4 and Symmetrical Psych/Mental Status: Normal Affect, Appropriate. Lab / Micro Data Result Diagrams: 02/24/22 08:41 02/24/22 08:41 Labs: Laboratory Results - last 24 hr 03/08/22 06:17: POC Glucose 178 H 03/08/22 12:52: POC Glucose 253 H Radiology Impression Spine X-Ray 03/08/22 08:35 IMPRESSION: The localization instrument is seen posterior to the L3-L4 disc space level. Charges/Coding Visit Charges Office Visits / Consults: [id number] OP Consult L4
[2022-03-08] MEDS: Ensure Surgery 237 ML LIQUID PO (16:22)
[2022-03-08 16:40] LABS: Bedside Glucose 246 mg/dL (74-106)
--- NOTE | 2022-03-08 16:47 | NURSING ---
[facility], Physical therapy came to see pt. Assisted to edge of bed. Stood at edge of bed, felt woozy. Encouraged to take deep breaths and blow out through nose. Pt did this a few times and then was able to walk from the bed to the other side of the room to the chair. Sitting in chair at this time.
[2022-03-08 17:18] LABS: Hematocrit 37.3 % (40-54); Hemoglobin 12.6 g/dL (13.0-16.5)
[2022-03-08] MEDS: 0.9% Saline Lock 10 ML Syringe IV ×2 (18:08→22:31)
[2022-03-08] MEDS: Morphine 2 MG/ML Syringe IV (18:08)
[2022-03-08] MEDS: oxyCODONE 5 MG Tablet PO ×2 (19:02→23:28)
[2022-03-08 22:25] LABS: Bedside Glucose 239 mg/dL (74-106)
[2022-03-08] MEDS: Zolpidem Tartrate 5 MG Tablet PO (22:31)
[2022-03-09 02:00] VITALS: BP 146/80; PULSE 80; RESP 16; TEMP 36.1; O2SAT 97
[2022-03-09] MEDS: Lactated Ringers 1,000 ML 100 ML IV (02:14)
[2022-03-09] MEDS: Acetaminophen 500 MG Tablet 1000 MG PO (06:29)
[2022-03-09 06:30] LABS: Bedside Glucose 137 mg/dL (74-106)
[2022-03-09] MEDS: oxyCODONE 5 MG Tablet PO ×2 (06:31→10:59)
[2022-03-09 06:37] LABS: Absolute Lymphocyte Count 1.72 X10^3/uL (0.83-4.51); Absolute Neutrophil Count 7.4 X10^3/uL (2.0-7.7); Basophil# 0.02 X10^3/uL; Basophil% 0.2 % (0-1); Eosinophil# 0.03 X10^3/uL; Eosinophils% 0.3 % (0-5); Hematocrit 33.9 % (40-54); Hemoglobin 11.4 g/dL (13.0-16.5); Lymphocyte # 1.72 X10^3/ul (0.83-4.51); Lymphocyte % 17.2 % (19-41); Mean Corp Hgb Conc 33.6 g/dL (32-36); Mean Corpuscular Hgb 29.4 pg (27.0-32.0); Mean Corpuscular Volume 87.4 fL (80-94); Mean Platelet Vol. 11.1 fl (6.2-12.0); NRBC Flagged by Analyzer 0 % (0-5); Neutrophil # 7.38 X10^3/uL (2.7-7.7); Neutrophil % 73.7 % (47-70); Platelet Count 211 K/mm3 (150-450); RBC Distribution Width CV 12.6 % (11.6-14.6); RBC Distribution Width SD 39.8 fl (35.1-43.9); Red Blood Count 3.88 M/mm3 (4.6-6.2)
[2022-03-09 06:59] LABS: Anion Gap 4 (5-15); BUN 17 mg/dL (7-18); BUN/Creat Ratio 20.8 RATIO (10-20); Calcium,Total 8.2 mg/dL (8.5-10.1); Chloride 108 mmol/L (98-107); Creatinine, Serum 0.82 mg/dL (0.70-1.30); EST Glomerular Filtration Rate 105 mL/min (>60); Est Glom Filt Rate - Afr Amer 127 mL/min (>60); Estimated Creatinine Clearance 113.51 ml/min; Glucose 148 mg/dL (74-106); Potassium 4.4 mmol/L (3.5-5.1); Sodium Level 139 mmol/L (136-145)
[2022-03-09 07:27] VITALS: BP 159/89; PULSE 76; RESP 18; TEMP 37.1; O2SAT 95
[2022-03-09] MEDS: Lisinopril 40 MG Tablet PO (07:35)
[2022-03-09 08:32] VITALS: O2SAT 94
[2022-03-09] MEDS: Glimepiride 4 MG Tablet PO (09:06)
[2022-03-09] MEDS: Ensure Surgery 237 ML LIQUID PO (09:06)
--- NOTE | 2022-03-09 09:35 | CASEMGMT ---
SUKH LOPEZ Face to Face with patient for initial transition planning/care coordination assessment. RN CM introduced self and role at [facility]. Patient sitting in chair, alert and oriented, at bedside. Patient willing to participate in assessment and is able to answer all questions appropriately. Care providers, pharmacy, and demographics verified. Patient wishes to discharge home, denies need for home health at this time. Patient states he has no further needs or concerns at this time. CM to follow for discharge planning needs that may arise. PCP: Navin Specialists: mulugeta Mcgraw; [place] [facility] Preferred Pharmacy: [facility] Insurance: MMO Prescription Benefit: yes Living Will/HPOA: none LNOK: Living Arrangements: Patient lives with in a 2 story home with bed and bath on the first floor. 5 steps and railing to enter the home. Patient states he was independent at home prior to surgery. Transportation: DME/HHC: Patient states he has cane at home. Will monitor patient for walker at discharge. Patient states he has no preferences for DME. No previous HHC. Disposition Plan: Patient to discharge home with family support and follow-up plans in place. Yohana GUERRA, RN, CM
[2022-03-09] MEDS: Insulin Lispro 100 UNIT/ML INSULN.PEN SC (11:04)
--- NOTE | 2022-03-09 11:09 | PN.HOSP_ITS ---
Subjective Subjective Follow-up for perioperative care of lumbar laminectomy L3-L4 surgery. Rosen catheter is discontinued. Patient passing flatus but not bowel movement yet. Feels urge for defecation. Sitting on the chair. Pain around operative region in the back. Objective Data Objective Data Vital Signs: Vital Signs Temp Pulse Resp BP Pulse Ox 98.7 F 76 18 159/89 H 94 03/09/22 07:27 03/09/22 07:27 03/09/22 07:27 03/09/22 07:27 03/09/22 08:32 Oxygen Flow Rate (L/min) 2 Oxygen Delivery Method Room Air Weight: 272 lb 11.389 oz Body Mass Index (BMI) 38.0 Intake & Output: Intake and Output for Last 24 Hours 03/07/22 03/08/22 03/09/22 23:59 23:59 23:59 Intake Total 3152.33 / 3152.33 2475 / 2475 Output Total 1585 / 2385 2065 / 2065 Balance 1567.33 / 767.33 410 / 410 Lab / Micro Data Result Diagrams: 03/09/22 05:55 03/09/22 05:55 Labs: Laboratory Results - last 24 hr 03/08/22 12:52: POC Glucose 253 H 03/08/22 16:29: POC Glucose 246 H 03/08/22 17:05: Hgb 12.6 L, Hct 37.3 L 03/08/22 21:52: POC Glucose 239 H 03/09/22 05:55: WBC 10.0, RBC 3.88 L, Hgb 11.4 L, Hct 33.9 L, MCV 87.4, MCH 29.4, MCHC 33.6, RDW Std Deviation 39.8, RDW Coeff of Jaziel 12.6, Plt Count 211, MPV 11.1, Immature Gran % (Auto) 0.600, Neut % (Auto) 73.7 H, Lymph % (Auto) 17.2 L, [place] % (Auto) 8.0, Eos % (Auto) 0.3, Baso % (Auto) 0.2, Absolute Neuts (auto) 7.4, Absolute Lymphs (auto) 1.72, Nucleated RBC % 0 03/09/22 05:55: Sodium 139, Potassium 4.4, Chloride 108 H, Carbon Dioxide 27.0, Anion Gap 4 L, BUN 17, Creatinine 0.82, Estim Creat Clear Calc 113.51, Est GFR (MDRD) Af Amer 127, Est GFR (MDRD) Non-Af 105, BUN/Creatinine Ratio 20.8 H, Glucose 148 H, Calcium 8.2 L 03/09/22 06:25: POC Glucose 137 H Micro: Microbiology 02/24/22 08:41 Swab (Method) Nasal Screen MRSA/MSSA - Final Physical Exam Narrative General: Alert, Oriented x3, Cooperative, morbid obesity BMI 38.0 kg/m?. HEENT: Atraumatic, PERRLA, EOMI, Normocephalic Oral: No Gingival or Mucosal Lesions/ Ulcerations Neck: Supple, No JVD, Negative Carotid Bruits Lungs: Air entry diminished in bilateral lung bases. No crepitation/rhonchi Cardiovascular: Regular rate, Regular Rhythm, Normal S1, Normal S2, systolic murmur grade 2/6 over LLSB, right second ICS Abdomen: Bowel Sounds Present, Soft, Non Tender, Non-Distended : Spontaneous voiding of urine. Rosen discontinued. No renal angle tenderness. No suprapubic tenderness. Extremities: No edema, Capillary Refill Less than 3 Seconds Skin: No rashes, No breakdown Musculoskeletal/spine: Surgical dressing on the back lumbar region dry. Surgical drain sanguinous collection. Muscle strength 5/5 at major joints. Neurological: Cranial nerves II-XII grossly intact, DTR 2+/4 and Symmetrical Psych/Mental Status: Normal Affect, Appropriate. Assessment & Plan Assessment/Plan (1) Lumbosacral radiculopathy at L4: PLAN: 1 herniated disc L3-4 with right L4 radiculopathy: Patient had lumbar laminectomy L3-4 on the right on 03/08/2022. Surgery under general anesthesia. On operative note, it is mentioned excessive epidural bleeding and failure to find free fragment of disc mentioned as complication. Drain contains sanguinous collection. Incentive spirometry encouraged. Early ambulation. PT and OT. Patient is high risk for bleeding for perioperative pharmacological VTE prophylaxis. Perioperative surgical management as per Dr. Conrad. Bilateral SCDs. Continue IV fluid. H&H ordered. 03/09: Patient voiding urine spontaneously. Patient might have bowel movement so on. H&H 11.4, baseline 13.9 g% therefore mild acute postoperative blood loss anemia. Ferrous sulfate every other day along with vitamin C. 2. Hypertension: Blood pressure is uncontrolled in the morning. Is better. Home medications resumed. 03/09: Blood pressure is 146/80, 159/89. 3. Diabetes mellitus type 2, uncontrolled hyperglycemia: Glucose in the BMP to 59. Accu-Chek 253. Accu-Chek before meals and at bedtime and cover with Humalog sliding scale. Hold metformin for 2 days. Patient on glimepiride continue. A1c 7.3% on 02/24. 03/10: Last Accu-Chek 137. 4. Mild allergy with pollens/asthma: Patient did not has to use recent rescue albuterol inhaler or wheezing or fever. Albuterol inhaler as needed. 5. Morbid obesity: Weight loss counseling done. The patient is hemodynamically stable. Surgical care as per Dr. Conrad regarding surgical drain and dressing change Charges/Coding Visit Charges Inpatient E&M: 07153 [facility] Hosp L2
[2022-03-09 11:26] VITALS: BP 159/84; PULSE 73; RESP 18; TEMP 36.6; O2SAT 96
--- NOTE | 2022-03-09 12:36 | PCM.DC ---
Discharge Instructions Follow Up Care Test Results: Test results from this visit will be discussed in further detail at your follow-up appointment, if applicable. Discharge Plan Admission Admit Date/Time: 03/08/22 07:25 Attending Provider: Honorio Conrad Primary Care Provider: Johann Holden Consulting Providers: Jorge L Sanders Discharge Orders/Prescriptions Prescriptions: No Action ibuprofen 200 mg tablet 800 mg PO Q6H PRN (Reason: Pain) RF: 0 albuterol sulfate 8.5 GM HFA aerosol inhaler 1 puff inhalation PRN PRN (Reason: SOB) RF: 0 lisinopril 40 MG tablet 40 mg PO DAILY RF: 0 metformin 500 MG tablet extended release 24hr 1,000 mg PO BID RF: 0 Glimepiride 4 MG 4 mg PO DAILY RF: 0 oxycodone-acetaminophen 7.5-325 mg Tablet 1 tab PO Q6H PRN (Reason: Pain) RF: 0 Other Ambulatory Orders: 12 Lead EKG (Routine) Timeframe: [id number] Location: None Selected Ordered By: Dr. Honorio Conrad Referrals / Follow Up: Johann Holden MD [Primary Care Provider] - Disposition Disposition (needs filled in before D/C Order can be placed): Home, Self Care
--- NOTE | 2022-03-09 12:36 | CASEMGMT ---
Addendum entered by Melody Sheppard 03/09/22 14:03: TC to [email or web address] to check status of walker, unable to reach [place] branch. Spoke with someone at [employer] who couldn't give a time. 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 SUKH LOPEZ in to pt room to give option of waiting for FWW or getting from [facility] on the way home. Pt and chose to machine operator hop picker on way home. Provided pt with original script and gave RN CM phone number should there be any issues. Pt denies further homegoing needs. Notified guidance secretary pt ready to be taken down. Original Note: Pt needs FWW, rx faxed to [email or web address] and email to Stuart at [email or web address].
[2022-03-09 13:31] LABS: Bedside Glucose 299 mg/dL (74-106)
== END 2022-03-09 14:15 | disposition home or self-care (01) ==
LOC: SDC 08:06 → MS3 08:06
PROVIDERS: Anesthesiology; Internal Medicine; Admitting Provider Orthopaedic Surgery; PCP Family Medicine; Referring Provider Orthopaedic Surgery; Visit Provider Orthopaedic Surgery
PROC: (CPT 63030; principal; 2022-03-08 07:00)
DX: M51.16 Intervertebral disc disorders with radiculopathy, lumbar region (principal); E66.01 Morbid (severe) obesity due to excess calories; E11.9 Type 2 diabetes mellitus without complications; R29.818 Other symptoms and signs involving the nervous system; Z79.84 Long term (current) use of oral hypoglycemic drugs; I10 Essential (primary) hypertension; Z79.899 Other long term (current) drug therapy; J45.909 Unspecified asthma, uncomplicated; Z68.38 Body mass index [BMI] 38.0-38.9, adult
CPT/HCPCS: 63030; 00670; 36415; 72020; 80048; 82962; 83036; 83735; 85014; 85018; 85025; 86703; 86706; 86708; 86803; 87077; 87081; 93005; 96361; 96365; 96366; 96375; 97162; 99218; J7120; A4216; G0378; J2405; J3490

== ENCOUNTER 2022-07-11 06:57 | Day surgery (SDC) | payer OTHER, SELFPAY ==
[2022-07-11] VITALS (7 sets, daily range): BP systolic 130–181; BP diastolic 78–97; PULSE 63–72; RESP 16–20; TEMP 36.3–36.7; O2SAT 92–98; BMI 37.8
[2022-07-11] MEDS: Lactated Ringers 1,000 ML 15 ML IV (07:05)
--- NOTE | 2022-07-11 07:15 | H&P.OPEN ---
HPI - General HPI Narrative NATALIIA CLEMENTE, is a 51 M who presents for screening colonoscopy. Patient's never had previous colonoscopy. Patient has bowel movements daily denies any blood. Patient denies any chronic abdominal pain/nausea/vomiting/reflux. Patient denies any family history of colon cancer. Patient's paternal uncle did have polyps in his mid 50s but not cancerous. [facility] Medical History (Updated 07/06/22 @ 08:44 by Jessica Grajeda) Alcohol use Anxiety Arthritis Asthma Back pain Blackout Diabetes Dietary restriction Fatty liver History of edema History of pain when walking History of steroid therapy HTN (hypertension) Injury of back Leg cramps Migraine headache Non-smoker Pain Wears glasses Home Medications Glimepiride 4 mg PO DAILY 08/14/20 [History Last Taken Unknown] albuterol sulfate 90 mcg/actuation aerosol inhaler 1 puff inhalation PRN PRN SOB 08/14/20 [History Last Taken Unknown] lisinopril 40 mg tablet 40 mg PO DAILY 08/14/20 [History Last Taken 03/08/22 03:30] metformin 500 mg tablet,extended release 24hr 1,000 mg PO BID 08/14/20 [History Last Taken Unknown] ibuprofen 200 mg tablet 800 mg PO Q6H PRN Pain 09/29/21 [History Last Taken Unknown] Super Beet 1 tbsp PO/SL DAILY supplement 07/06/22 [History Last Taken Unknown] Allergy/AdvReac Type Severity Reaction Status Date / Time bee venom protein (honey bee) Allergy Anaphylaxis Verified 07/11/22 07:26 [bee sting] Family History (Updated 06/03/22 @ 09:42 by Joie Sánchez) Father Diabetes Grandmother Colon cancer Uncle Colon cancer Surgical History (Updated 07/06/22 @ 08:44 by Jessica Grajeda) History of bursectomy Hx of LASIK Hx of tonsillectomy S/P lumbar laminectomy (~03/08/22) Social History Smoking Status: Never smoker Past Medical/Surgical History Planned Operation Planned Operative Procedure/s: Colonoscopy Previous Hospitalizations/Surgeries HX Hospitalizations: Yes (Laminectomy 02/2022) Any Problems With Anesthesia: No You/Your Family Experience Fever (Hyperthermia) With Anes: No Cholinesterase deficiency: No Cardiovascular Hx of Irregular Heartbeat and/or Afib: No Hx Heart Attack: No Hx Congestive Heart Failure: No Hx Hypertension: Yes (per pt, controlled) Hx Pacemaker: No Respiratory Hx Chronic Obstructive Pulmonary Disease (COPD): No Hx Asthma: No Hx Emphysema: No Hx Sleep Apnea: No Hx Respiratory Tract Infection/Cold (presently): No Do You Snore Loudly (louder than talking or can be heard): No Do You Often Feel Tired/ Fatigued/ Sleepy [place]ring Daytime?: No Has Anyone Observed You Stop Breathing During Sleep?: No Result (for STOP score): Negative Smoking Status: Never smoker Gastrointestinal Hx Gastroesophageal Reflux: Yes Controlled With Meds: Yes Hx Ulcer: No Neurological Hx Seizures: No Hx Head/Neck Injury: No Hx Headaches: No Hx Back Injury/Pain: Yes Does patient have nerve stimulator: Yes (not using at this time) Endocrine Hx Diabetes: Yes Miscellaneous Recent Exposure to Contagious Disease: No Allergies bee venom protein (honey bee) [bee sting] Allergy (Verified 07/11/22 07:26) Anaphylaxis Discharge Is Pt Admitted From a Shelter, or a Intermediate: No Who Could Help: After D/C, Where Do you Plan to Go: Return Home Physical Exam Const alert, oriented x3 and no apparent distress HEENT normocephalic and head/scalp atraumatic Resp normal respiratory effort Cardio regular rate GI soft to palpation and non-tender; Negative for non-distended Palpation: Negative for guarding Extremity no clubbing, cyanosis or edema Neuro CN's II-XII intact bilaterally Psych mental status grossly normal Assessment & Plan Assessment/Plan (1) Encounter for screening for malignant neoplasm of colon: Surgery Risks - Colonoscopy Risks Include but are not Limited To: Risks include but are not limited to: Bleeding, perforation requiring further surgery, inability to complete colonoscopy requiring barium enema.
[2022-07-11 08:25] LABS: Bedside Glucose 142 mg/dL (74-106)
--- NOTE | 2022-07-11 08:31 | OP.COLON_ITS ---
Patient Name: Niko Herbert Procedure Date: 07/11/2022 7:59 AM Date of : 1970 Age: 51 Procedure: Colonoscopy Indications: Screening for colorectal malignant neoplasm Providers: Farida Gonzalez MD Medicines: Monitored Anesthesia Care Patient Profile: This is a 51 year old male. Last Colonoscopy: none. The patient's first colonoscopy is today. Complications: No immediate complications. Procedure: Pre-Anesthesia Assessment: - Prior to the procedure, a History and Physical was performed, and patient medications and allergies were reviewed. The patient's tolerance of previous anesthesia was also reviewed. The risks and benefits of the procedure and the sedation options and risks were discussed with the patient. All questions were answered, and informed consent was obtained. Prior Anticoagulants: The patient has taken no previous anticoagulant or antiplatelet agents. ASA Grade Assessment: Per anesthesia. After reviewing the risks and benefits, the patient was deemed in satisfactory condition to undergo the procedure. After I obtained informed consent, the scope was passed under direct vision. Throughout the procedure, the patient's blood pressure, pulse, and oxygen saturations were monitored continuously. The colonoscope was introduced through the anus and advanced to the cecum, identified by the appendiceal orifice, ileocecal valve and palpation. The colonoscopy was performed without difficulty. The patient tolerated the procedure well. The quality of the bowel preparation was good. Scope In: 8:10:29 AM Scope Withdrawal Time 0 hours 8 minutes 54 seconds Scope Out: 8:28:16 AM Total Procedure Duration Time 0 hours 17 minutes 47 seconds Findings: The perianal and digital rectal examinations were normal. The entire examined colon appeared normal on direct and retroflexion views. Impression: - The entire examined colon is normal on direct and retroflexion views. - No specimens collected. Recommendation: - Discharge patient to home. - Resume previous diet. - Continue present medications. - Repeat colonoscopy in 10 years for screening purposes. Procedure Code(s): --- Professional --- G0121, PT, Colorectal cancer screening; colonoscopy on individual not meeting criteria for high risk Diagnosis Code(s): --- Professional --- Z12.11, Encounter for screening for malignant neoplasm of colon CPT copyright 2017 [employer]. All rights reserved. The codes documented in this report are preliminary and upon fur stylist review may be revised to meet current compliance requirements. MD Farida Chatterjee MD 07/11/2022 8:31:32 AM This report has been signed electronically. Number of Addenda: 0 Note Initiated On: 07/11/2022 7:59 AM
--- NOTE | 2022-07-11 08:32 | OP.CCLET_ITS ---
07/11/2022 Johann Holden Re : Colonoscopy procedure for Niko Herbert Dear Navin This procedure was performed on Monday, July 11, 2022. My impressions and recommendations are as follows: Impressions : - The entire examined colon is normal on direct and retroflexion views. - No specimens collected. Recommendations : - Discharge patient to home. - Resume previous diet. - Continue present medications. - Repeat colonoscopy in 10 years for screening purposes. My findings are described in the full procedure note, which is enclosed. If I can be of further assistance, please feel free to contact me at Doctor phone number(s): , Work: . Sincerely, MD Farida Chatterjee MD 07/11/2022 8:31:32 AM This report has been signed electronically.
== END 2022-07-11 09:10 | disposition home or self-care (01) ==
LOC: EN 06:57 → AC 07:00
PROVIDERS: PCP Family Medicine; Referring Provider Family Medicine; Visit Provider Surgery
PROC: 0DJD8ZZ Inspection of Lower Intestinal Tract, Via Natural or Artificial Opening Endoscopic (ICD-10-PCS; CPT 45378; principal; 2022-07-11 08:10)
DX: Z12.11 Encounter for screening for malignant neoplasm of colon (principal); E11.9 Type 2 diabetes mellitus without complications; I10 Essential (primary) hypertension; F41.9 Anxiety disorder, unspecified; M19.90 Unspecified osteoarthritis, unspecified site; J45.909 Unspecified asthma, uncomplicated; K76.0 Fatty (change of) liver, not elsewhere classified; Z79.84 Long term (current) use of oral hypoglycemic drugs; Z79.899 Other long term (current) drug therapy; Z80.0 Family history of malignant neoplasm of digestive organs
CPT/HCPCS: 45378; 82962; J7120; J2405

== ENCOUNTER → 2023-02-17 | Outpatient (CLI) | payer OTHER, SELFPAY ==
[2023-02-17 12:36] LABS: Absolute Lymphocyte Count 1.21 X10^3/uL (0.83-4.51); Absolute Neutrophil Count 3.7 X10^3/uL (2.0-7.7); Basophil# 0.03 X10^3/uL; Basophil% 0.6 % (0-1); Eosinophil# 0.13 X10^3/uL; Eosinophils% 2.4 % (0-5); Hematocrit 42.1 % (40-54); Hemoglobin 14.2 g/dL (13.0-16.5); Lymphocyte # 1.21 X10^3/ul (0.83-4.51); Lymphocyte % 22.2 % (19-41); Mean Corp Hgb Conc 33.7 g/dL (32-36); Mean Corpuscular Hgb 29.3 pg (27.0-32.0); Mean Corpuscular Volume 86.8 fL (80-94); Mean Platelet Vol. 11.2 fl (6.2-12.0); Monocyte# 0.39 X10^3/uL; Monocyte% 7.2 % (0-10); NRBC Flagged by Analyzer 0 % (0-5); Neutrophil # 3.66 X10^3/uL (2.7-7.7); Neutrophil % 67.2 % (47-70); Platelet Count 220 K/mm3 (150-450); RBC Distribution Width CV 12.5 % (11.6-14.6); RBC Distribution Width SD 39.5 fl (35.1-43.9); Red Blood Count 4.85 M/mm3 (4.6-6.2); White Blood Count 5.4 K/mm3 (4.4-11.0)
[2023-02-17 13:10] LABS: ALB/GLOB Ratio 1.1 RATIO (0.9-2.4); AST(SGOT) 40 U/L (15-37); Alanine Aminotransfer ALT/SGPT 64 U/L (16-61); Albumin, Serum 3.6 g/dL (3.2-5.0); Alkaline Phosphatase 77 U/L (45-117); Anion Gap 8 (5-15); BUN 12 mg/dL (7-18); BUN/Creat Ratio 15.2 RATIO (10-20); Calcium,Total 8.9 mg/dL (8.5-10.1); Chloride 107 mmol/L (98-107); Cholesterol 202 mg/dL (200); Creatinine, Serum 0.79 mg/dL (0.70-1.30); EST Glomerular Filtration Rate 110 mL/min (>60); Est Glom Filt Rate - Afr Amer 133 mL/min (>60); Globulin 3.2 g/dL (2.2-4.2); Glucose 146 mg/dL (74-106); High Density Lipoprotein 43 mg/dL; PSA,Total - Annual Screen 0.54 ng/mL (0.00-4.00); Potassium 4.1 mmol/L (3.5-5.1); Protein, Total 6.8 g/dL (6.4-8.2); Sodium Level 142 mmol/L (136-145); Triglycerides 162 mg/dL; Very Low Density Lipoprotein 32 mg/dL (5-40)
[2023-02-17 13:44] LABS: Microalbumin,Random Urine 40.1 mg/L (NO RANGE EST.)
== END | disposition home or self-care (01) ==
LOC: BFHLAB 10:06
PROVIDERS: PCP Family Medicine; Referring Provider Family Medicine; Visit Provider Family Medicine
DX: Z00.00 Encounter for general adult medical examination without abnormal findings (principal); E11.9 Type 2 diabetes mellitus without complications; Z12.5 Encounter for screening for malignant neoplasm of prostate
CPT/HCPCS: 36415; 80053; 80061; 82043; 82570; 83036; 84153; 85025; G0103

== ENCOUNTER → 2024-01-26 | Outpatient (CLI) | payer OTHER, SELFPAY | END | disposition home or self-care (01) | LOC: LAB.FUTURE 13:07 | PROVIDERS: PCP Family Medicine; Visit Provider Family Medicine | DX: Z00.00 Encounter for general adult medical examination without abnormal findings (principal); E11.65 Type 2 diabetes mellitus with hyperglycemia; Z12.5 Encounter for screening for malignant neoplasm of prostate ==

== ENCOUNTER → 2024-04-23 | Outpatient (CLI) | payer OTHER, SELFPAY ==
[2024-04-23 17:40] LABS: Absolute Lymphocyte Count 1.65 X10^3/uL (0.83-4.51); Absolute Neutrophil Count 5.4 X10^3/uL (2.0-7.7); Basophil# 0.03 X10^3/uL; Basophil% 0.4 % (0-1); Eosinophils% 1.3 % (0-5); Hematocrit 41.1 % (40-54); Hemoglobin 14.1 g/dL (13.0-16.5); Lymphocyte # 1.65 X10^3/ul (0.83-4.51); Lymphocyte % 21.1 % (19-41); Mean Corp Hgb Conc 34.3 g/dL (32-36); Mean Corpuscular Hgb 29.1 pg (27.0-32.0); Mean Corpuscular Volume 84.7 fL (80-94); Mean Platelet Vol. 11.3 fl (6.2-12.0); Monocyte% 7.7 % (0-10); NRBC Flagged by Analyzer 0 % (0-5); Neutrophil # 5.38 X10^3/uL (2.7-7.7); Neutrophil % 68.9 % (47-70); Platelet Count 264 K/mm3 (150-450); RBC Distribution Width CV 12.9 % (11.6-14.6); RBC Distribution Width SD 39.9 fl (35.1-43.9); Red Blood Count 4.85 M/mm3 (4.6-6.2); White Blood Count 7.8 K/mm3 (4.4-11.0)
[2024-04-23 18:07] LABS: Microalbumin:Creatinine Ratio 36.8 mg/g CRE (<30 mg/g CRE)
[2024-04-23 18:13] LABS: AST(SGOT) 36 U/L (15-37); Alanine Aminotransfer ALT/SGPT 61 U/L (16-61); Albumin, Serum 3.6 g/dL (3.2-5.0); Alkaline Phosphatase 93 U/L (45-117); Anion Gap 8 (5-15); BUN 11 mg/dL (7-18); BUN/Creat Ratio 11.1 RATIO (10-20); Calcium,Total 9.1 mg/dL (8.5-10.1); Chloride 107 mmol/L (98-107); Cholesterol 216 mg/dL (200); Creatinine, Serum 0.99 mg/dL (0.70-1.30); EST Glomerular Filtration Rate 84 mL/min (>60); Est Glom Filt Rate - Afr Amer 101 mL/min (>60); Globulin 3.5 g/dL (2.2-4.2); Glucose 227 mg/dL (74-106); High Density Lipoprotein 42 mg/dL; PSA,Total - Annual Screen 0.49 ng/mL (0.00-4.00); Potassium 3.6 mmol/L (3.5-5.1); Protein, Total 7.1 g/dL (6.4-8.2); Sodium Level 140 mmol/L (136-145); Thyroid Stim Hormone (TSH) 0.94 uIU/mL (0.358-3.74); Triglycerides 226 mg/dL; Very Low Density Lipoprotein 45 mg/dL (5-40)
[2024-04-23 18:17] LABS: Hemoglobin A1c 7.3 % (3.8-5.6)
== END | disposition home or self-care (01) ==
LOC: BFHLAB 16:29
PROVIDERS: PCP Family Medicine; Referring Provider Family Medicine; Visit Provider Family Medicine
DX: Z00.00 Encounter for general adult medical examination without abnormal findings (principal); E11.65 Type 2 diabetes mellitus with hyperglycemia; Z12.5 Encounter for screening for malignant neoplasm of prostate
CPT/HCPCS: 36415; 80053; 80061; 82043; 82570; 83036; 84153; 84443; 85025; G0103

== ENCOUNTER → 2024-07-26 | Outpatient (CLI) | payer OTHER, SELFPAY ==
[2024-07-26 18:29] LABS: Hemoglobin A1c 8.5 % (3.8-5.6)
== END | disposition home or self-care (01) ==
LOC: BFHLAB 15:27
PROVIDERS: PCP Family Medicine; Visit Provider Family Medicine
DX: E11.9 Type 2 diabetes mellitus without complications (principal)
CPT/HCPCS: 36415; 83036

== ENCOUNTER → 2025-06-27 | Outpatient (CLI) | payer OTHER, SELFPAY ==
[2025-06-27 13:07] LABS: Creatinine, Urine (random) 417.00 mg/dL (39.00-259.00); Microalbumin,Random Urine 41.3 mg/L (<20 mg/L)
[2025-06-27 15:15] LABS: Hematocrit 42.8 % (40-54); Hemoglobin 15.0 g/dL (13.0-16.5); Immature Granulocytes Count 0.050 X10^3/uL (0.0-0.0); Mean Corp Hgb Conc 35.0 g/dL (32-36); Mean Corpuscular Volume 84.3 fL (80-94); Mean Platelet Vol. 11.1 fl (6.2-12.0); NRBC Flagged by Analyzer 0 % (0-5); Platelet Count 267 K/mm3 (150-450); RBC Distribution Width CV 12.3 % (11.6-14.6); RBC Distribution Width SD 37.3 fl (35.1-43.9); Red Blood Count 5.08 M/mm3 (4.6-6.2); White Blood Count 7.3 K/mm3 (4.4-11.0)
[2025-06-27 16:36] LABS: AST(SGOT) 37 U/L (<=37); Alanine Aminotransfer ALT/SGPT 54 U/L (<=46); Albumin, Serum 4.3 g/dL (3.5-5.0); Alkaline Phosphatase 93 U/L (40-129); Anion Gap 16 (5-15); BUN 11 mg/dL (4-19); BUN/Creat Ratio 13.9 RATIO (10-20); Calcium,Total 9.5 mg/dL (7.6-11.0); Carbon Dioxide 20.9 mmol/L (21.0-32.0); Chloride 105 mmol/L (98-108); Cholesterol 202 mg/dL (<=200); Globulin 2.7 g/dL (2.2-4.2); Glucose 178 mg/dL (70-99); Low Density Lipoprotein Calc. 125 mg/dL; PSA,Total - Annual Screen 0.75 ng/mL (0.02-4.00); Potassium 4.1 mmol/L (3.3-5.1); Triglycerides 157 mg/dL; Very Low Density Lipoprotein 31 mg/dL (5-40); cholesterol:hdl ratio screen 4.46
== END | disposition home or self-care (01) ==
LOC: BFHLAB 11:00
PROVIDERS: PCP Family Medicine; Visit Provider Family Medicine
DX: Z00.00 Encounter for general adult medical examination without abnormal findings (principal); E11.3299 Type 2 diabetes mellitus with mild nonproliferative diabetic retinopathy without macular edema, unspecified eye; Z12.5 Encounter for screening for malignant neoplasm of prostate
CPT/HCPCS: 36415; 80053; 80061; 82043; 82570; 83036; 84153; 85025; G0103